=== PATIENT | female | born 1975 | race Caucasian/White ===

== ENCOUNTER → 2017-06-21 10:21 | Outpatient (CLI) | payer MEDICARE ==
[2016-09-27 07:13] VITALS: BMI 51.9
[~2017-06-21 10:21] MED LIST: GLUCOPHAGE1000 MG PO; HYDROCODONE-APA1 TAB PO; MORPHINE SULFAT30 MG PO; NEURONTIN 300300 MG PO; PHENERGAN25 M1 PO; PROPRANOLOL HCL60 M1 PO; XANAX0.5 MG PO
[2017-06-21 10:48] LABS: BASOPHILS 0.2 % (0-2); EOSINOPHILS 3.2 % (0-7); HEMATOCRIT 41.1 % (36.0-48.0); HEMOGLOBIN 13.1 g/dL (12-16); IMMATURE GRANULOCYTES 0.1 % (0-5); LYMPHOCYTES 29.2 % (15-50); MCH 27.5 pg (26.0-34.0); MCHC 31.9 g/dL (31.0-37.0); MCV 86.3 fL (80.0-100.0); MEAN PLATELET VOLUME 9.6 fL (7.4-10.4); MONOCYTES 6.2 % (2-11); NEUTROPHILS 61.1 % (40-80); PLATELET COUNT 226 10x3/uL (130-400); RBC 4.76 10x6/uL (4.00-5.40); RDW 14.1 % (11.5-14.5); WBC 8.4 10x3/uL (4.8-10.8)
[2017-06-21 11:00] LABS: HEMOGLOBIN A1C 6.3 % (4.8-6.0)
[2017-06-21 11:14] LABS: ANION GAP 9.9 mmol/L (8-16); BILIRUBIN - TOTAL 0.41 mg/dL (0.2-1.3); CALCIUM 8.6 mg/dL (8.5-10.1); CARBON DIOXIDE 30.1 mmol/L (21.0-32.0); CHOL - HDL RATIO 3.3 ratio (2.3-4.1); CREATININE - SERUM 0.9 mg/dL (0.6-1.3); LDL-HDL RATIO 1.9 ratio (1.5-3.5); PROTEIN - SERUM 7.2 g/dL (6.4-8.2); THYROID STIMULATING HORMONE 2.51 uIU/mL (0.36-3.74); URIC ACID 5.7 mg/dL (2.6-7.2)
[2017-06-22 07:26] LABS: VITAMIN D 25 HYDROXY 29.5 ng/mL (30.0-100.0)
== END | disposition home or self-care (01) ==
LOC: D.LAB 08:15
PROVIDERS: Family Medicine
DX: Z00.00 Encounter for general adult medical examination without abnormal findings (principal); E11.9 Type 2 diabetes mellitus without complications; I10 Essential (primary) hypertension; M79.1 Myalgia; E78.5 Hyperlipidemia, unspecified; E55.9 Vitamin D deficiency, unspecified; E03.9 Hypothyroidism, unspecified; R53.83 Other fatigue

== ENCOUNTER 2017-09-13 12:29 | Emergency (ER) | payer MEDICARE ==
[2016-09-27 07:13] VITALS: BMI 51.9
[2017-09-13 13:20] LABS: BASOPHILS 0.4 % (0-2); EOSINOPHILS 3.4 % (0-7); HEMOGLOBIN 12.3 g/dL (12-16); IMMATURE GRANULOCYTES 0.2 % (0-5); LYMPHOCYTES 29.3 % (15-50); MCH 27.5 pg (26.0-34.0); MCHC 31.5 g/dL (31.0-37.0); MCV 87.2 fL (80.0-100.0); MONOCYTES 4.9 % (2-11); NEUTROPHILS 61.8 % (40-80); PLATELET COUNT 211 10x3/uL (130-400); RBC 4.47 10x6/uL (4.00-5.40); RDW 14.3 % (11.5-14.5); WBC 8.2 10x3/uL (4.8-10.8)
[2017-09-13 13:41] LABS: ALBUMIN 3.3 g/dL (3.4-5.0); ALKALINE PHOSPHATASE 69 U/L (46-116); ALT (SGPT) 18 U/L (10-68); BILIRUBIN - TOTAL 0.25 mg/dL (0.2-1.3); CALC OSMOLALITY 281 mosm/kg (275-300); CALCIUM 8.8 mg/dL (8.5-10.1); CARBON DIOXIDE 28.3 mmol/L (21.0-32.0); CHLORIDE - SERUM 105 mmol/L (98-107); CREATININE - SERUM 0.9 mg/dL (0.6-1.3); GLUCOSE 110 mg/dL (74-106); POTASSIUM - SERUM 4.1 mmol/L (3.5-5.1); PROTEIN - SERUM 6.9 g/dL (6.4-8.2); SODIUM 141 mmol/L (136-145); UREA NITROGEN 13 mg/dL (7-18); eGFR NON AFRICAN AMERICAN 73 mL/min (90-120)
[2017-09-13 13:52] LABS: CHOLESTEROL, TOTAL 133 mg/dL (0-200); CKMB 0.5 U/L (0.0-3.6); CREATINE KINASE 69 UL (21-215); HDL CHOLESTEROL 45 mg/dL (32-96); LDL CHOLESTEROL 73 mg/dL (0-100); LDL-HDL RATIO 1.6 ratio (1.5-3.5); TRIGLYCERIDE 75 mg/dL (30-200); TROPONIN-I 0.059 ng/mL (0.000-0.060)
== END 2017-09-13 14:50 | disposition home or self-care (01) ==
LOC: D.ER 12:29
PROVIDERS: Emergency Medicine
DX: R07.89 Other chest pain (principal); J06.9 Acute upper respiratory infection, unspecified; E11.9 Type 2 diabetes mellitus without complications; K21.9 Gastro-esophageal reflux disease without esophagitis; I10 Essential (primary) hypertension; Z95.0 Presence of cardiac pacemaker; I45.10 Unspecified right bundle-branch block; I44.4 Left anterior fascicular block

== ENCOUNTER → 2018-05-30 14:42 | Outpatient (CLI) | payer MEDICARE ==
[2016-09-27 07:13] VITALS: BMI 51.9
== END | disposition home or self-care (01) ==
LOC: D.RAD 14:42
DX: M79.662 Pain in left lower leg (principal)